=== PATIENT | male | born 1950 | race African-American/Black ===

== ENCOUNTER 2023-12-28 01:59 | Emergency (ER) | payer OTHER, MEDICAID ==
[~2023-12-28] VITALS: Ht 182.9 cm; Wt 82.0 kg
[2023-12-28 02:00] VITALS: O2SAT 100
[2023-12-28 03:15] LABS: HEMATOCRIT. 25.3 % (42.0-52.0); HEMOGLOBIN. 7.4 g/dL (14.0-18.0); MEAN CORPUSCULAR HEMOGLOBIN 17.9 pg (28.0-32.0); MEAN CORPUSCULAR HGB CONC 29.2 g/dL (31.0-37.0); MEAN CORPUSCULAR VOLUME 61.2 fL (80.0-94.0); RED BLOOD CELL COUNT 4.13 mill/uL (4.7-6.1); RED CELL DISTRIBUTION WIDTH 19.7 % (11.6-14.6); WHITE BLOOD COUNT 5.3 x1000/uL (4.5-11.0)
[2023-12-28 03:22] LABS: DIFFERENTIAL COMMENT 1
[2023-12-28 03:47] LABS: CHLORIDE 112 mEq/L (98-107); POTASSIUM 4.1 mEq/L (3.5-5.1); SODIUM 141 mEq/L (136-145)
[2023-12-28 03:48] LABS: CALCIUM 9.5 mg/dL (8.7-10.4); CARBON DIOXIDE 23 mEq/L (21-32)
[2023-12-28 03:53] LABS: GLUCOSE 91 mg/dL (70-105); TROPONIN I HIGH SENSITIVITY 8 ng/L (3.0-53); UREA NITROGEN BLOOD 19 mg/dL (9-23)
[2023-12-28 04:30] LABS: PLATELET ESTIMATE NORMAL
[2023-12-28 04:31] LABS: GIANT PLATELETS FEW; HYPOCHROMASIA 2+; MICROCYTOSIS 2+; OVALOCYTES 2+; TARGET CELLS 1+; TEAR DROP CELLS 1+; TOXIC VACUOLATION 1+
[2023-12-28 04:57] LABS: MEAN PLATELET VOLUME 8.8 fl (7.4-10.4); PLATELET 153 x1000/uL (130-400)
[2023-12-28 05:27] LABS: TROPONIN I HIGH SENSITIVITY 6 ng/L (3.0-53)
[2023-12-28 08:20] VITALS: BP 158/62; PULSE 68; RESP 12; TEMP 98
== END 2023-12-28 08:25 | disposition short-term general hospital (02) ==
LOC: ER 01:59 → EDBEDREQTM 06:52 → EDBEDREQ 06:52 → ER 08:25 → CANBEDREQ 19:38
DX: R07.9 Chest pain, unspecified (principal); D64.9 Anemia, unspecified; J45.909 Unspecified asthma, uncomplicated; I10 Essential (primary) hypertension; F17.200 Nicotine dependence, unspecified, uncomplicated
CPT/HCPCS: 36415; 71045; 72100; 80048; 83880; 84484; 85025; 99285